=== PATIENT | male | born 1975 | race Caucasian/White ===

== ENCOUNTER 2016-05-11 12:54 | Emergency (ER) | payer SELFPAY ==
[2016-05-11 13:21] LABS: CREATININE 1.15 mg/dl (0.60-1.30); eGFR VALUE FOR BLACK >90 mL/Min
[2016-05-11 14:04] LABS: URINE BILIRUBIN NEGATIVE (NEG); URINE BLOOD NEGATIVE (NEG); URINE GLUCOSE (UA) NEGATIVE (NEG); URINE KETONE NEGATIVE (NEG); URINE LEUKOCYTE ESTERASE NEGATIVE (NEG); URINE NITRITE NEGATIVE (NEG); URINE PROTEIN MODERATE (NEG); URINE SPECIFIC GRAVITY 1.015 (1.003-1.030)
[2016-05-11 14:05] LABS: URINE APPEARANCE CLEAR; URINE COLOR YELLOW
[2016-05-11 14:19] LABS: URINE RBC 0-1 /[HPF] (0-5); URINE WBC 0-1 /[HPF] (0-5)
[2016-05-11 14:20] LABS: URINE EPITHELIAL CELLS 0-3 /[HPF] (0-10)
[2016-05-11] MEDS ORDERED: PERCOCET 5-3251 EACH PO (14:30)
[2016-05-11] MEDS ORDERED: FLOMAX0.4 M1 PO (14:30)
[2016-05-11] MEDS ORDERED: COMPAZINE10 MG PO (14:30)
[2016-05-11] MEDS ORDERED: LISINOPRIL-HCT1 EAC3 PO (15:10)
== END 2016-05-11 15:45 ==
LOC: EDMED 12:54
PROVIDERS: Emergency Medicine
DX: N20.1 Calculus of ureter (principal); I10 Essential (primary) hypertension; F17.200 Nicotine dependence, unspecified, uncomplicated
CPT/HCPCS: J1885; J2270; J2405; J7030